=== PATIENT | female | born 1945 | race Caucasian/White ===

== ENCOUNTER → 2023-05-25 07:54 | Outpatient (REF) | payer MEDICARE, SELFPAY ==
[2023-05-25 10:29] LABS: Albumin 4.2 g/dl (3.5-5.0); Blood Urea Nitrogen 24 mg/dl (7-17); Calcium 9.5 mg/dl (8.4-10.2); Carbon Dioxide 24 mmol/L (22-30); Chloride 105 mmol/L (98-107); Glucose 111 mg/dl (70-99); HDL Cholesterol 105 mg/dl; LDL Cholesterol, Calculated 62 mg/dl; Phosphorus 4.3 mg/dl (2.5-4.5); Potassium 4.2 mmol/L (3.5-5.1); Sodium 136 mmol/L (135-145); Total Cholesterol 189 mg/dl (50-199); Triglyceride 112 mg/dl (10-149); Very Low Density Lipoprotein 22 mg/dl (0-30); eGFR > 60.00
== END ==
LOC: REG 07:54
PROVIDERS: ATTENDING PHYSICIAN Internal Medicine Cardiovascular Disease; FAMILY PHYSICIAN Family Medicine
DX: E78.5 Hyperlipidemia, unspecified (principal); I48.0 Paroxysmal atrial fibrillation; Z51.81 Encounter for therapeutic drug level monitoring; I10 Essential (primary) hypertension
CPT/HCPCS: 36415; 80061; 80069

== ENCOUNTER → 2023-11-20 13:45 | Outpatient (REF) | payer MEDICARE, SELFPAY ==
[2023-11-20 14:53] LABS: Albumin 4.4 g/dl (3.5-5.0); Blood Urea Nitrogen 29 mg/dl (7-17); Calcium 9.9 mg/dl (8.4-10.2); Carbon Dioxide 29 mmol/L (22-30); Chloride 103 mmol/L (98-107); Glucose 120 mg/dl (70-99); Phosphorus 3.4 mg/dl (2.5-4.5); Potassium 5.4 mmol/L (3.5-5.1); Sodium 143 mmol/L (135-145); eGFR 51.75
== END ==
LOC: REG 13:45
PROVIDERS: ATTENDING PHYSICIAN Internal Medicine Cardiovascular Disease
DX: I10 Essential (primary) hypertension (principal)
CPT/HCPCS: 36415; 80069

== ENCOUNTER → 2023-12-07 08:23 | Outpatient (REF) | payer MEDICARE, SELFPAY ==
[2023-12-07 11:50] LABS: Albumin 3.9 g/dl (3.5-5.0); Blood Urea Nitrogen 27 mg/dl (7-17); Calcium 9.3 mg/dl (8.4-10.2); Carbon Dioxide 24 mmol/L (22-30); Chloride 105 mmol/L (98-107); Glucose 106 mg/dl (70-99); Sodium 141 mmol/L (135-145); eGFR > 60.00
== END ==
LOC: REG 08:23
PROVIDERS: ATTENDING PHYSICIAN Internal Medicine Cardiovascular Disease; FAMILY PHYSICIAN Family Medicine
DX: I48.0 Paroxysmal atrial fibrillation (principal); I10 Essential (primary) hypertension
CPT/HCPCS: 36415; 80069

== ENCOUNTER 2024-01-13 13:26 | Emergency (ER) | payer MEDICARE, SELFPAY ==
[2024-01-13] VITALS (8 sets, daily range): BP systolic 133–173; BP diastolic 61–80; PULSE 49–52; BMI 33.8
[2024-01-13 14:58] LABS: % Basophils 0.9 % (0-2); % Eosinophils 2.2 % (0-6); % Immature Granulocytes 0.1 % (0-0.5); % Lymphocytes 26.6 % (20.5-51.1); % Monocytes 14.7 % (1.7-9.3); % Neutrophils 55.5 % (42.2-75.2); Absolute Basophils 0.1 10^3/uL (0-0.2); Absolute Eosinophils 0.2 10^3/uL (0-0.7); Absolute Lymphocytes 1.8 10^3/uL (1.2-3.4); Absolute Neutrophils 3.8 10^3/uL (1.4-6.5); Hematocrit 37.5 % (37.0-47.0); Hemoglobin 12.8 g/dL (12.0-16.0); Mean Corp Hgb Conc. 34.1 g/dL (33.0-37.0); Mean Corpuscular Hgb 32.2 pg (27.0-31.0); Mean Corpuscular Volume 94.2 fL (81.0-99.0); Mean Platelet Volume 9.9 fL (7.4-10.4); Nucleated Red Blood Cells % 0 %; Platelet Count 305 10^3/uL (130-400); Red Blood Cell Count 3.98 10^6/uL (4.20-5.40); Red Cell Dist. Width 13.8 % (11.5-14.5); White Blood Cell Count 6.9 10^3/uL (4.8-10.8)
[2024-01-13 15:23] LABS: ALT (SGPT) 20 U/L (0-35); AST (SGOT) 29 U/L (14-36); Albumin 4.1 g/dl (3.5-5.0); Alkaline Phosphatase 55 U/L (38-126); Blood Urea Nitrogen 28 mg/dl (7-17); Calcium 9.2 mg/dl (8.4-10.2); Carbon Dioxide 24 mmol/L (22-30); Chloride 106 mmol/L (98-107); Estimated Creatinine Clearance 43 ml/min; Glucose 91 mg/dl (70-99); Potassium 4.8 mmol/L (3.5-5.1); Sodium 140 mmol/L (135-145); Total Bilirubin 0.5 mg/dl (0.2-1.3); Total Protein 6.5 g/dl (6.3-8.2); eGFR 57.66
[2024-01-13 15:28] LABS: Troponin I < 0.012 ng/ml
[2024-01-13] MEDS: TYLENOL 1000 MG PO (15:30)
[2024-01-13 15:39] LABS: Lipase 307 U/L (23-300)
[2024-01-13 15:50] LABS: NT-proBNP 100 pg/ml
[2024-01-13 15:51] LABS: COVID-19 Antigen Negative (Negative)
--- NOTE | 2024-01-13 17:01 | ED.GENMED ---
History of Present Illness
General
Chief Complaint: Breathing Problem
Source: patient
Exam Limitations: none
Time Seen by Provider: 01/13/24 14:53
Nursing documentation reviewed up to this point in time: agreed with
History of Present Illness
History of Present Illness:
78 y/o F
h/o PAF on eliquis
metoprolol, low resting HR 50s
htn, hld
here with L shoulder pain when she woke up, worse with movement, painful ROM, and thought she slept on it wrong
took some aleve
but then noticed other sypmtoms, mild lightheadedness, nausea, felt a little sob and wondered if this could be a heart attack; she googled the sypmtom sand decided to come in
she is goign to have ablattion at the end of the month for PAF that is not responding to cardioversions
she otherwise doesn't have cardiac disease
no pleuritic pain, recent travle
is compliant with eliquis
she has no exertional sypmmtoms
no leg swleling, fever, vomiting, syncope
she does feel al ittle lightheaded, says she recently started different bp meds and is shceudled to have labs in a week to [facility] kidney function (losartan hctz)
Past History
Past History
ED Past Medical History: Arrthythmia (afib), HTN, Hypercholesterolemia and Other
Social History
Tobacco: Non-smoker
Alcohol: None
Review of Systems
Review of Systems
Allergies reviewed?: Yes
All Other Systems: Not applicable
Phy Exam
Physical Exam
Physical Exam:
GENERAL: Alert , in no apparent distress
EYE: pupils equal and reactive
NECK: Supple
ENT: o/p clr, mmm.
CARDIAC: bradycardic, no murmur, no edema
LUNGS: Clear breath sounds bilaterally, no acute respiratory distress, no wheezes/rales/rhonchi, no tachypnea
ABDOMEN: Soft, without focal tenderness, no r/g, no cvat, normal bowel sounds
NEUROLOGICAL: Alert and oriented, no focal neuro deficits
SKIN: Warm and dry, skin intact.
MUSCULOSKELETAL: shoulder L side, mild tenderness to anterior humerus; no swleling/redness
painful rotation/extension shoulder, some mild crunching with exam
no clvaicle tendneress
no LUE tenderness or swelling
PSYCH: Normal and appropriate interaction.
Scores
Heart Failure Risk
Heart Failure Risk Score: Not Applicable
Course
Orders/Labs/Results
Orders:
Orders
01/13/24 13:27
EKG [Electrocardiogram (*1)] Urgent
Reason for Study: Chest Pain
EKG- Treatment ONCE
01/13/24 14:43
Complete Blood Count/With Diff Urgent
Comprehensive Metabolic Panel Urgent
Lipase Urgent
01/13/24 14:44
NT-proBNP Urgent
Comment: BNP ADDED ON BY FLOOR 3:30PM 01-13-24
Troponin I Urgent
01/13/24 15:24
Orthostatic VS- Treatment ONCE
CR Shoulder, Trauma - Left Urgent
Comment:
Reason For Exam: left shoulder pain
01/13/24 15:25
Acetaminophen [Tylenol] 1,000 mg PO NOW STA
CR Chest - 2 Views Urgent
Comment:
Reason For Exam: lightheadedness, sob
01/13/24 15:26
Add On- LAB Urgent
Tests Added?: bnp
Add On- LAB Urgent
Tests Added?: lipase
01/13/24 15:31
COVID-19 Antigen Urgent
Source: Nasal Swab
Abnormal Lab Results
01/13/24
14:43
RBC 3.98 L 10^6/uL
(4.20-5.40)
MCH 32.2 H pg
(27.0-31.0)
Absolute Monos (auto) 1.0 H 10^3/uL
(0.1-0.6)
Monocytes % 14.7 H %
(1.7-9.3)
BUN 28 H mg/dl
(7-17)
Lipase 307 H U/L
(23-300)
01/13/24 14:43
01/13/24 14:43
Vital Signs
Initial and Last Documented VS:
Initial Vital Signs
Temp Pulse Resp BP Pulse Ox
36.8 C 56 18 171/80 97
01/13/24 13:32 01/13/24 13:32 01/13/24 13:32 01/13/24 13:32 01/13/24 13:32
Last Documented Vital Signs
Temp Pulse Resp BP Pulse Ox
36.8 C 49 16 171/75 97
01/13/24 13:32 01/13/24 16:15 01/13/24 16:15 01/13/24 16:00 01/13/24 15:45
MDM/Problems Addressed
Differential Diagnosis Includes:
calcific tendinitis, arhtirits, dehydration, near syncope, less likely nstemi/acs
MDM/Problems Addressed:
78 y/o F with h/o htn, hld, afib on eliquis
here with L sholuder pain when she woke up worse with movement
then noticed some other vague sypmtoms, nausea, mild sob, lightheadedness and she was worried mayb eshe was having heart attack
no syncope,
no exeritonal sypmtoms
no chest pain
no pleuritic pain
compliatn with eliequis
hr always 50s
wlel appearing no distress
some painful ROM of the L shoulder
nv intact
bradycardia but sinus
lungs lcear
abd nontender
labs appreciated, mild bun elevated, lipase minimally elevated, not clinicallys ignificant 307
ekg no ischemia
trop neg
bnp normal
cxr clear
d/w ed attending
xray shoulder indep reviewed by me and apperars like AC joint arthritis and calcific tenidnitis
tyenol and f/u
orthostatics neg, inc oral hydratoim
*Critical Care Note
Total Time (30-74mins, 75-104mins- exclusive of procedures): Not Applicable
ED Attending Note
-
Portions of this chart may have been created with voice recognition software.� Occasional wrong word or��sound alike� substitutions may have occurred due to the inherent limitations of voice recognition software.
Discharge Plan
Departure
Patient Disposition: Home (Routine Discharge)
Date of Disposition: 01/13/24
Time of Disposition: 17:19
Patient with high blood pressure during this ER visit?: Yes
Condition: Fair
Covid-19: Not Applicable
Discharge Problem:
Arthritis of shoulder, Calcific tendinitis of shoulder, Lightheadedness
Instructions: Shoulder Tendinopathy (DC)
Prescriptions:
No Action
atorvastatin 20 MG tablet
20 mg PO HS
metoprolol tartrate 25 MG tablet
12.5 mg PO HS
multivitamin [One Daily Multivitamin] 1 EACH tablet
1 ea PO DAILY
flecainide 100 MG tablet
100 mg PO BID
mupirocin 2 % ointment
1 applic intranasal BID Qty: 1 0RF
Patient Comments:
last dose was this am, 04/11/22
hydrochlorothiazide 25 mg Tablet
25 mg PO DAILY
docusate sodium 100 mg Capsule
100 mg PO BID Qty: 1 0RF
Eliquis 2.5 mg Tablet
2.5 mg PO BID Qty: 1 0RF
Rx Instructions:
last dose April 12p
magnesium hydroxide 400 mg/5 mL Suspension
30 ml PO DAILYPRN PRN (Reason: constipation) Qty: 30 0RF
acetaminophen 325 mg Tablet
650 mg PO Q4HWA Qty: 2 0RF
sennosides [senna] 8.6 mg Tablet
17.2 mg PO BID Qty: 2 0RF
dexamethasone 4 mg tablet
4 mg PO BID Qty: 6 0RF
Rx Instructions:
take with food
post-op use only
cyclobenzaprine 5 mg tablet
5 mg PO HS Qty: 10 0RF
oxycodone 5 mg tablet
5 - 10 mg PO Q6HPRN PRN (Reason: 1 tab moderate-2 tabs severe pain) Qty: 30 0RF
Rx Instructions:
Dx TKA
ongoing therapy
Eliquis 5 MG tablet
5 mg PO BID
Referrals:
Ángel Miranda MD [Family Provider] -
Activity Restrictions/Additional Instructions:
YOUR XRAY SHOWS SOME MILD ARTHRITIS AND POSSIBLY TENDINITIS INF YOUR SHOULDER
YOU SHOULD ICE OFF AND ON
TAKE TYLENOL FOR PAIN
FOLLOW UP WITH ORTHOPEDICS
YOUR CARDIAC WORK UP WAS RESASSURING
CALL YOUR DEPUTY ADMINISTRATOR AND TELL THEM YOU WERE IN THE ER
DRINK A LITTLE MORE FLUIDS, YOU MAY BE MILDLY DEHYDRATED
RETURN FOR: SEVERE WORSENING SYPMTOMS, TROUBLE BREATHING, PASSING OUT, EXERTIONAL SYMPTOS OR ANY CONCERNS.
Interventions
Interventions:
*Risk Screen - Suicide Last Done: 01/13/24 13:32
*General Assessment Last Done: 01/13/24 14:38
*Neglect/Abuse Screening Last Done: 01/13/24 13:32
ED- Fall Risk Assessment Last Done: 01/13/24 14:39
*ED COVID-19 Vaccine History Last Done: 01/13/24 14:38
ED- Cardiac Assessment Last Done: 01/13/24 14:39
ED- Pulmonary Assessment Last Done: 01/13/24 14:39
Discharge Date and Time
Print Language: RWANDAN
== END 2024-01-13 17:30 | disposition home or self-care (01) ==
LOC: EMR 13:26
PROVIDERS: Physician Assistant; EMERGENCY PHYSICIAN Emergency Medicine; FAMILY PHYSICIAN Family Medicine
DX: M75.32 Calcific tendinitis of left shoulder (principal); M19.012 Primary osteoarthritis, left shoulder; R42 Dizziness and giddiness; I10 Essential (primary) hypertension; E78.00 Pure hypercholesterolemia, unspecified; I48.0 Paroxysmal atrial fibrillation; Z79.01 Long term (current) use of anticoagulants; Z11.52 Encounter for screening for COVID-19
CPT/HCPCS: 99285; 71046; 73030; 80053; 83690; 83880; 84484; 85025; 87811; 93005

== ENCOUNTER → 2024-01-25 07:40 | Outpatient (REF) | payer MEDICARE, SELFPAY ==
[2024-01-25 08:55] LABS: Albumin 4.1 g/dl (3.5-5.0); Blood Urea Nitrogen 30 mg/dl (7-17); Calcium 9.3 mg/dl (8.4-10.2); Carbon Dioxide 28 mmol/L (22-30); Chloride 103 mmol/L (98-107); Glucose 105 mg/dl (70-99); Phosphorus 3.9 mg/dl (2.5-4.5); Potassium 4.3 mmol/L (3.5-5.1); Sodium 138 mmol/L (135-145); eGFR > 60.00
== END ==
LOC: REG 07:40
PROVIDERS: ATTENDING PHYSICIAN Internal Medicine Cardiovascular Disease
DX: I10 Essential (primary) hypertension (principal)
CPT/HCPCS: 36415; 80069

== ENCOUNTER → 2024-04-23 08:20 | Outpatient (REF) | payer MEDICARE, SELFPAY ==
[2024-04-23 10:42] LABS: Albumin 3.9 g/dl (3.5-5.0); Blood Urea Nitrogen 25 mg/dl (7-17); Calcium 9.8 mg/dl (8.4-10.2); Carbon Dioxide 26 mmol/L (22-30); Chloride 105 mmol/L (98-107); Glucose 97 mg/dl (70-99); Phosphorus 4.5 mg/dl (2.5-4.5); Potassium 4.7 mmol/L (3.5-5.1); Sodium 138 mmol/L (135-145); eGFR > 60.00
== END ==
LOC: REG 08:20
PROVIDERS: ATTENDING PHYSICIAN Internal Medicine Cardiovascular Disease; FAMILY PHYSICIAN Family Medicine
DX: I48.0 Paroxysmal atrial fibrillation (principal); I10 Essential (primary) hypertension
CPT/HCPCS: 36415; 80069

== ENCOUNTER → 2024-05-20 10:20 | Outpatient (REF) | payer MEDICARE, SELFPAY ==
[2024-05-20 11:24] LABS: % Basophils 1.2 % (0-2); % Immature Granulocytes 0.2 % (0-0.5); % Lymphocytes 26.2 % (20.5-51.1); % Monocytes 14.2 % (1.7-9.3); % Neutrophils 55.2 % (42.2-75.2); Absolute Basophils 0.1 10^3/uL (0-0.2); Absolute Eosinophils 0.2 10^3/uL (0-0.7); Absolute Lymphocytes 1.6 10^3/uL (1.2-3.4); Absolute Monocytes 0.9 10^3/uL (0.1-0.6); Absolute Neutrophils 3.4 10^3/uL (1.4-6.5); Hematocrit 39.3 % (37.0-47.0); Mean Corp Hgb Conc. 33.1 g/dL (33.0-37.0); Mean Corpuscular Hgb 31.6 pg (27.0-31.0); Mean Corpuscular Volume 95.4 fL (81.0-99.0); Mean Platelet Volume 11.1 fL (7.4-10.4); Nucleated Red Blood Cells % 0 %; Platelet Count 291 10^3/uL (130-400); Red Blood Cell Count 4.12 10^6/uL (4.20-5.40); Red Cell Dist. Width 13.9 % (11.5-14.5); White Blood Cell Count 6.1 10^3/uL (4.8-10.8)
[2024-05-20 11:48] LABS: Albumin 4.4 g/dl (3.5-5.0); Blood Urea Nitrogen 31 mg/dl (7-17); Calcium 9.7 mg/dl (8.4-10.2); Carbon Dioxide 26 mmol/L (22-30); Chloride 105 mmol/L (98-107); Glucose 112 mg/dl (70-99); Phosphorus 3.7 mg/dl (2.5-4.5); Potassium 4.7 mmol/L (3.5-5.1); Sodium 140 mmol/L (135-145); eGFR 57.66
== END ==
LOC: REG 10:20
PROVIDERS: ATTENDING PHYSICIAN Internal Medicine Cardiovascular Disease; FAMILY PHYSICIAN Family Medicine
DX: R09.89 Other specified symptoms and signs involving the circulatory and respiratory systems (principal); I48.0 Paroxysmal atrial fibrillation
CPT/HCPCS: 36415; 80069; 85025

== ENCOUNTER 2024-06-04 07:36 | Day surgery (SDC) | payer MEDICARE, SELFPAY ==
[2024-06-04] VITALS (9 sets, daily range): BP systolic 115–160; BP diastolic 53–70; BMI 34.4
[2024-06-04] MEDS: NSS 500 IV (08:42)
[2024-06-04 11:31] LABS: ACT-LR - POC 318 Seconds (116-155)
[2024-06-04 11:51] LABS: ACT-LR - POC 345 Seconds (116-155)
--- NOTE | 2024-06-04 12:36 | ITS.CL.ABL ---
Car Lot Attendant - Ablation
Ablation
Procedure Report:
AFIB / A flutter ablation:
Ms. Serrano is a very pleasant 78 yr old woman with medical history significant for symptomatic paroxysmal atrial fibrillation is here in the EP lab for atrial fibrillation ablation
Date of Procedure:
06/04/2024
Indications:
Symptomatic paroxysmal atrial fibrillation
Pre-Operative Diagnosis:
Paroxysmal atrial fibrillation
Post-Operative Diagnosis:
Paroxysmal atrial fibrillation
Procedure Performed:
Atrial fibrillation ablation with wide area circumferential ablation (WACA) approach for pulmonary vein isolation
Performing Physician:
Leoncio Jaime MD
Assistants:
EP staff
Anesthesia:
See anesthesia records
Detailed Description of the Procedure:
Written informed consent was obtained from the patient after a full explanation of the risks and benefits of the procedure including the risks of sedation and anesthesia.
The patient was brought to the electrophysiology laboratory in stable condition in fasting state. Continuous electrocardiographic and hemodynamic monitoring was initiated.
The initial rhythm was sinus bradycardia.
The procedure site was meticulously prepared with surgical scrub and allowed to dry with no pooling. Sterile draping was applied to cover the procedure site. The image intensifier was draped with sterile bag and positioned over the patient. After
infusion of local anesthetic, vascular access was obtained under ultrasound guidance and sheaths were placed over guide wire as detailed below.
The images of the ultrasound of the femoral vessels were stored in patient chart.
Sheath and Catheter Placement:
In the right femoral vein, a 10-Bahamian sheath was placed under ultrasound guidance for use during the ablation procedure. In the right femoral vein, another 9-Fr sheath was placed for use during intracardiac echo procedure.
The sheaths were upgraded as needed during the case. Intracardiac catheters were positioned using direct fluoroscopic guidance.� ICE catheter was placed in RA. The following catheters / sheaths were placed
Sheaths:
��������� Agilis sheath in right femoral vein upgraded from 10Fr in right femoral vein
��������� 9Fr in right femoral vein
Catheters:
��������� The Affera Sphere 9 catheter -bidirectional D/F� - at locations of HRA, LA and LV.
��������� ICE catheter -AccuNav -� at locations of RA, SVC, and RV.
Heparin was initiated after the access was obtained.
Intracardiac ECHO:
An 8-Bahamian AcuNav intracardiac ECHO (ICE) probe was advanced through the 9-Bahamian sheath in the left femoral vein into the right atrium under fluoroscopic and ICE ultrasound image guidance and a baseline ECHO study was performed. The left atrial
size was mildly dilated. There was trace tricuspid regurgitation. The aortic valve was grossly normal. There was normal left ventricular size and function. There is a trace pericardial effusion. The PRINCESS has baseline low velocities. The pulmonary had
good flow identified.
During the procedure, ICE was used for monitoring of complications, guidance of trans-septal puncture, monitor the catheter position and tracking ablation lesions. No change in the pericardial space noted throughout the procedure.
Trans-septal Puncture:
Heparin was initiated and infused to maintain appropriate ACT. A J-tipped guidewire was advanced through into the superior vena cava under fluoroscopic and ICE guidance. The Agilis sheath with BRK needle was advanced into the superior vena cava over
the guidewire. The apparatus was withdrawn until it was in contact with the fossa ovalis. The position was adjusted based on fluoroscopy and ultrasound images from ICE. Under fluoroscopic, hemodynamic and ICE ultrasound guidance, left atrium was
cannulated by advancing the needle. Once atrial septum was cannulated, the needle was pulled back and the guide wire was advanced through the needle into the left atrium. The guide wire was advanced into the left superior pulmonary vein. Both the
sheath and the dilator was advanced into the left atrium. The dilator with the needle was withdrawn. Blood was aspirated from the Agilis sheath and arterial blood confirmed. The sheath was flushed. Saline injection noted into the left atrium on ICE.
The waveform of the LA pressure was recorded. The mapping catheter was advanced in the Agilis sheath into the left pulmonary vein.
3D Electroanatomic Mapping:
Using the Sphere 9 Affera catheter advanced through Agilis sheath into the left atrium, an electroanatomic map (EAM) of the left atrium was created using Contur� mapping system with Prism-1 software. The map was used for localization of catheter
position and tacking of ablation lesions. The EAM of the left atrium showed a total of 4 PVs with a two left and two right sided pulmonary veins with all electrically connected to the body the LA. It showed no significant scar on the posterior wall
of the LA. The LA was dilated in size.
Following the EAM, preparation were made for ablation.
Ablation:
Ablation # 2: Pulmonary vein Isolation:
Glycopyrrolate 0.2 mg was given prior to the placement of ablation.
Pulsed field ablation was performed using an open irrigation, bidirectional, contact sensing, dual energy ablation catheter (Dextrysa sphere -9) by completing the circumferential lesions around the left and right pulmonary veins achieving pulmonary
vein isolation.
Confirmation of the PVI and bidirectional block:
Following achievement of entrance block at the pulmonary veins, pacing from the Sphere 9 affera catheter in each of the four veins at 20 milliamps for 4 milliseconds showed entrance and exit block.
The LA was mapped with The Dextrysa� mapping system with Prism-1 software in sinus rhythm confirming the line of block at the ablation lesions lines.
�
EP study:
Sinus Node Function: The sinus node functions are within acceptable normal range.
Atrioventricular Maddie Function: �Normal AV conduction noted with normal AV maddie conduction time.
Procedure End
ICE study was done again that showed no epicardial accumulation. No complications noted.
Following the completion of the EP study, catheters were removed. Protamine 30 mg was given at the end of the procedure and ACT was checked repeatedly. The sheaths were removed and hemostasis achieved with VASCADE and manual compression after
acceptable ACT is achieved.
Left atrial Pressure:
Pre-Procedure: Mean LA pressure was 5mmHg
Post-Procedure: Mean LA pressure was 5mmHg
Estimated Blood loss:
<10 cc
Specimens Removed:
None.
Implants / Devices:
None
Urine output:
None
Packs / Drains/ Tubes:
None
Instrument / Sponge Count Correct:
Yes
Complications of the Procedure:
None
Condition of Patient at Time of Transfer:
Hemodynamically stable with no neurological or vascular compromise.
Summary:
��������� Successful atrial fibrillation ablation with circumferential bidirectional line of block at pulmonary vein antra (Pulmonary vein isolation)
Figures from the Procedure:
Figure 1: The electroanatomic mapping (EAM) of the left atrium with bipolar voltage (purple indicates normal electrical activity with red as no myocardial muscle electric activity indicating a line of block or scar.
--- NOTE | 2024-06-04 15:03 | W.PN.UPDATE ---
Update Note
Progress Note Update
78 yo WF s/p PVI (same day). She denies cp, mild sore throat, and left arm pain, meghan diet, voiding, EKG SB 1deg AVB, R fem site VASCADE c/d/i no HT, soft. She will resume Eliquis tonight. She will stop flecainide and decrease carvedilol to 3.125mg
twice daily. She will monitor bp and bring log to her f/u apt. Activity restrictions reviewed. She will f/u in 2 weeks with CRUTCH MAKER. She is for d/c home after 3pm.
== END 2024-06-04 15:15 | disposition home or self-care (01) ==
LOC: CATH 07:36
PROVIDERS: ATTENDING PHYSICIAN Internal Medicine Cardiovascular Disease; FAMILY PHYSICIAN Family Medicine; OTHER PHYSICIAN Internal Medicine Cardiovascular Disease
DX: I48.0 Paroxysmal atrial fibrillation (principal); Z88.5 Allergy status to narcotic agent; Z98.890 Other specified postprocedural states; Z79.01 Long term (current) use of anticoagulants; Z79.899 Other long term (current) drug therapy; I10 Essential (primary) hypertension; E78.00 Pure hypercholesterolemia, unspecified
CPT/HCPCS: C1769; C1766; C1892; C1759; C1733; 85347; 86850; 86900; 86901; 93005; 93656; C1760

== ENCOUNTER → 2024-06-11 12:30 | Outpatient (REF) | payer MEDICARE, SELFPAY | LOC: HWWDC 12:30 | PROVIDERS: ATTENDING PHYSICIAN Obstetrics & Gynecology Gynecology; FAMILY PHYSICIAN Family Medicine | DX: Z12.31 Encounter for screening mammogram for malignant neoplasm of breast (principal) | CPT/HCPCS: 77063; 77067 ==

== ENCOUNTER 2024-06-13 15:02 | Emergency (ER) | payer MEDICARE, SELFPAY ==
[2024-06-13] VITALS (9 sets, daily range): BP systolic 106–128; BP diastolic 58–79; PULSE 63–70; BMI 33.4
[2024-06-13 15:27] LABS: % Basophils 0.9 % (0-2); % Eosinophils 2.2 % (0-6); % Immature Granulocytes 0.2 % (0-0.5); % Lymphocytes 24.2 % (20.5-51.1); % Monocytes 13.2 % (1.7-9.3); % Neutrophils 59.3 % (42.2-75.2); Absolute Basophils 0.1 10^3/uL (0-0.2); Absolute Eosinophils 0.2 10^3/uL (0-0.7); Absolute Monocytes 1.1 10^3/uL (0.1-0.6); Absolute Neutrophils 4.9 10^3/uL (1.4-6.5); Hematocrit 36.8 % (37.0-47.0); Hemoglobin 12.8 g/dL (12.0-16.0); Mean Corp Hgb Conc. 34.8 g/dL (33.0-37.0); Mean Corpuscular Hgb 31.8 pg (27.0-31.0); Mean Corpuscular Volume 91.5 fL (81.0-99.0); Mean Platelet Volume 10.2 fL (7.4-10.4); Nucleated Red Blood Cells % 0 %; Platelet Count 295 10^3/uL (130-400); Red Blood Cell Count 4.02 10^6/uL (4.20-5.40); Red Cell Dist. Width 14.1 % (11.5-14.5); White Blood Cell Count 8.2 10^3/uL (4.8-10.8)
[2024-06-13 15:41] LABS: ALT (SGPT) 22 U/L (0-35); AST (SGOT) 27 U/L (14-36); Albumin 4.1 g/dl (3.5-5.0); Alkaline Phosphatase 67 U/L (38-126); Blood Urea Nitrogen 28 mg/dl (7-17); Calcium 9.3 mg/dl (8.4-10.2); Carbon Dioxide 24 mmol/L (22-30); Chloride 107 mmol/L (98-107); Glucose 101 mg/dl (70-99); Potassium 4.3 mmol/L (3.5-5.1); Sodium 140 mmol/L (135-145); Total Bilirubin 0.8 mg/dl (0.2-1.3); Total Protein 6.5 g/dl (6.3-8.2); eGFR 57.66
[2024-06-13 16:00] LABS: Troponin I 0.058 ng/ml
--- NOTE | 2024-06-13 16:58 | EDRN ---
echo is currently at the pts bedside
--- NOTE | 2024-06-13 17:23 | ED.GENMED ---
History of Present Illness
General
Chief Complaint: Chest Pain
Source: patient and records
Time Seen by Provider: 06/13/24 16:21
History of Present Illness
History of Present Illness:
78-year-old female with past medical history of atrial fibrillation status post ablation on June 04, hypertension, hyperlipidemia presenting to the emergency department for evaluation of palpitations and lightheadedness that has been ongoing since
her ablation, noting symptoms worse over the last 48 hours. Patient asymptomatic presently other than some mild lightheadedness. She denies any fevers, chills, rigors. She reports taking her usual medications as scheduled. Currently denying any
chest pain, shortness of breath, diaphoresis, exertional dyspnea, orthopnea, lower extremity edema, cough, hemoptysis or any other concerns.
Past History
Past History
ED Past Medical History: Arrthythmia (afib), HTN, Hypercholesterolemia and Other
ED Past Surgical History: Cardiac, Gynecological and Orthopedic
Social History
Tobacco: Non-smoker
Alcohol: None
Drug: None
Personal:
Living: with family
Review of Systems
Review of Systems
All Other Systems: ROS reviewed and negative except as documented in HPI and ROS
Phy Exam
Physical Exam
Physical Exam:
GENERAL: Alert , in no apparent distress
EYE: conjunctiva clear
NECK: Supple
ENT: o/p clr, mmm.
CARDIAC: Regular rate and rhythm
LUNGS: Clear breath sounds bilaterally, no acute respiratory distress, no wheezes/rales/rhonchi
NEUROLOGICAL: Alert and oriented
SKIN: Warm and dry, skin intact.
MUSCULOSKELETAL: well perfused.
PSYCH: Normal and appropriate interaction.
Scores
Heart Failure Risk
Heart Failure Risk Score: Not Applicable
Heart Score for Chest Pain Patients
STEMI patient?: Not applicable
Withdrawal Assessment of Alcohol
Withdrawal Assessment Completed?: Not applicable
Course
Orders/Labs/Results
Orders:
Orders
06/13/24 15:04
EKG [Electrocardiogram (*1)] Urgent
Reason for Study: Chest Pain
EKG- Treatment ONCE
06/13/24 15:18
Complete Blood Count/With Diff Urgent
Comprehensive Metabolic Panel Urgent
Troponin I Urgent
06/13/24 16:31
Orthostatic VS- Treatment ONCE
06/13/24 16:33
Echo 2D MMode Color/Doppler Urgent
Reason for Study: palpitations, recent ablation, elevated trop
CR Chest - 2 Views Urgent
Comment:
Reason For Exam: palpitations, recent ablation, elevated trop
06/13/24 17:56
Troponin I Urgent
Abnormal Lab Results
06/13/24 06/13/24
15:18 17:56
RBC 4.02 L 10^6/uL
(4.20-5.40)
Hct 36.8 L %
(37.0-47.0)
MCH 31.8 H pg
(27.0-31.0)
Absolute Monos (auto) 1.1 H 10^3/uL
(0.1-0.6)
Monocytes % 13.2 H %
(1.7-9.3)
BUN 28 H mg/dl
(7-17)
Glucose 101 H mg/dl
(70-99)
Troponin I 0.058 H* ng/ml 0.057 H* ng/ml
06/13/24 15:18
06/13/24 15:18
Vital Signs
Initial and Last Documented VS:
Initial Vital Signs
Temp Pulse Resp BP Pulse Ox
98.3 F 72 18 113/63 96
06/13/24 15:10 06/13/24 15:10 06/13/24 15:10 06/13/24 15:10 06/13/24 15:10
Last Documented Vital Signs
Temp Pulse Resp BP Pulse Ox
97.6 F 94 19 119/79 96
06/13/24 15:49 06/13/24 18:45 06/13/24 18:45 06/13/24 17:39 06/13/24 18:45
MDM/Problems Addressed
Differential Diagnosis Includes:
Paroxysmal atrial fibrillation, orthostasis, symptomatic hypotension, electrolyte derangement, atypical ACS presentation
MDM/Problems Addressed:
78-year-old female presenting to the ER for evaluation of paroxysmal palpitations and lightheadedness, currently without palpitations but still feeling lightheaded. Blood pressure is a little bit soft, question polypharmacy or medication side
effect. Also question orthostasis. Patient's EKG is a normal sinus rhythm, no ischemic changes, telemetry remains in normal sinus rhythm. Given recent procedure we will touch base with cardiology. Will check orthostatic vital signs. Patient had
lab work initiated in triage which did reveal a mildly elevated troponin at 0.058. Will repeat this although it could be related to recent ablation.
Chronic conditions affecting care: Arrhythmia
Acute Exacerbation and/or Progression of Chronic Illness: Arrhythmia
*Radiology
Radiology exam reviewed: radiology read reviewed
*Pulse Oximetry
Patient hypoxic: no
*EKG
Heart Rate: 66
Rate: normal
Rhythm: sinus
Ischemia: non-specific ST changes
*Litigation Docket Manager Interpretation
Rate: normal
Rhythm: sinus
*Critical Care Note
Total Time (30-74mins, 75-104mins- exclusive of procedures): Not Applicable
Data Reviewed
Review of Other/Old Records Reveals: Records and Testing
Source: patient and records
Patient Management
Discussion with other providers: Automotive Quality Engineer
Escalation/DeEscalation of care consider admission/obs:
Case discussed with cardiology who recommends getting chest x-ray and echocardiogram to rule out effusion. Agrees with remaining workup
Patient's chest x-ray and echocardiogram are unremarkable. Repeat troponin downtrending. Patient remains asymptomatic. Stable for discharge home and outpatient management with cardiology.
ED Attending Note
-
Portions of this chart may have been created with voice recognition software.� Occasional wrong word or��sound alike� substitutions may have occurred due to the inherent limitations of voice recognition software.
Discharge Plan
Departure
Patient Disposition: Home (Routine Discharge)
Date of Disposition: 06/13/24
Time of Disposition: 18:35
Patient with high blood pressure during this ER visit?: No
Discharge Problem:
Palpitations, Lightheadedness
Instructions: Palpitations - ED discharge instructions
Prescriptions:
No Action
atorvastatin 20 MG tablet
20 mg PO HS
multivitamin [One Daily Multivitamin] 1 EACH tablet
1 ea PO DAILY
Eliquis 5 mg tablet
5 mg PO BID
acetaminophen 500 mg Tablet
500 mg PO Q6HPRN PRN (Reason: mild pain)
hydrochlorothiazide 25 mg Tablet
25 mg PO DAILY
valsartan 160 mg Tablet
160 mg PO BID
carvedilol 6.25 mg Tablet
3.125 mg PO BID Qty: 0 0RF
Referrals:
Sandra Aviles MD [Family Provider] -
Interventions
Interventions:
*Risk Screen - Suicide Last Done: 06/13/24 15:10
*General Assessment Last Done: 06/13/24 15:10
*Neglect/Abuse Screening Last Done: 06/13/24 15:10
*ED- Fall Risk Assessment Last Done: 06/13/24 15:49
*ED COVID-19 Vaccine History Last Done: 06/13/24 15:10
*Nursing Disposition Last Done: 06/13/24 18:48
ED- Cardiac Assessment Last Done: 06/13/24 15:49
Discharge Date and Time
Discharge Date/Time: 06/13/24 18:49
Print Language: ITALIAN
[2024-06-13 18:28] LABS: Troponin I 0.057 ng/ml
== END 2024-06-13 18:49 | disposition home or self-care (01) ==
LOC: EMR 15:02
PROVIDERS: Physician Assistant Medical; EMERGENCY PHYSICIAN Emergency Medicine; FAMILY PHYSICIAN Family Medicine
DX: R07.89 Other chest pain (principal); I48.91 Unspecified atrial fibrillation; I10 Essential (primary) hypertension; E78.00 Pure hypercholesterolemia, unspecified; I70.0 Atherosclerosis of aorta
CPT/HCPCS: 99283; 71046; 80053; 84484; 85025; 93005; 93306

== ENCOUNTER 2024-06-25 13:24 | Emergency (ER) | payer MEDICARE, SELFPAY ==
[2024-06-25] VITALS (19 sets, daily range): BP systolic 100–141; BP diastolic 54–94; BMI 34.4
[2024-06-25 13:41] LABS: % Basophils 0.8 % (0-2); % Eosinophils 1.4 % (0-6); % Immature Granulocytes 0.3 % (0-0.5); % Lymphocytes 23.8 % (20.5-51.1); % Monocytes 10.4 % (1.7-9.3); % Neutrophils 63.3 % (42.2-75.2); Absolute Basophils 0.1 10^3/uL (0-0.2); Absolute Eosinophils 0.1 10^3/uL (0-0.7); Absolute Lymphocytes 1.8 10^3/uL (1.2-3.4); Absolute Monocytes 0.8 10^3/uL (0.1-0.6); Absolute Neutrophils 4.8 10^3/uL (1.4-6.5); Hematocrit 37.7 % (37.0-47.0); Hemoglobin 13.1 g/dL (12.0-16.0); Mean Corp Hgb Conc. 34.7 g/dL (33.0-37.0); Mean Corpuscular Hgb 31.6 pg (27.0-31.0); Mean Corpuscular Volume 91.1 fL (81.0-99.0); Nucleated Red Blood Cells % 0 %; Platelet Count 345 10^3/uL (130-400); Red Blood Cell Count 4.14 10^6/uL (4.20-5.40); White Blood Cell Count 7.6 10^3/uL (4.8-10.8)
[2024-06-25 13:55] LABS: ALT (SGPT) 20 U/L (0-35); AST (SGOT) 26 U/L (14-36); Albumin 4.4 g/dl (3.5-5.0); Alkaline Phosphatase 75 U/L (38-126); Blood Urea Nitrogen 24 mg/dl (7-17); Calcium 9.7 mg/dl (8.4-10.2); Carbon Dioxide 27 mmol/L (22-30); Chloride 109 mmol/L (98-107); Glucose 146 mg/dl (70-99); Sodium 142 mmol/L (135-145); Total Protein 6.7 g/dl (6.3-8.2); eGFR 57.66
[2024-06-25 14:05] LABS: Troponin I < 0.012 ng/ml
--- NOTE | 2024-06-25 14:30 | ED.GENMED ---
History of Present Illness
General
Chief Complaint: Heart Rate Problem
Time Seen by Provider: 06/25/24 14:06
History of Present Illness
History of Present Illness:
Patient is a 78-year-old woman with history of paroxysmal A-fib with recent ablation presenting to the emergency department palpitations. Per chart review patient had an ablation done on June 04. She is on Coreg and Eliquis. She has not missed
any doses. She was on flecainide which they discontinued. She states that she woke up at 3 AM with palpitations. She has had this once before and it resolved without any intervention. She does feel slightly lightheaded dizzy though states that
at her baseline. No chest pain no shortness of breath. Has not missed any doses. No fevers chills. No infectious signs or. She did call her produce buyer who advised her to come to the emergency department.
Past History
Past History
ED Past Medical History: Arrthythmia (afib), HTN, Hypercholesterolemia and Other
ED Past Surgical History: Cardiac, Gynecological and Orthopedic
Social History
Tobacco: Non-smoker
Alcohol: None
Drug: None
Personal:
Living: with family
Phy Exam
Physical Exam
Physical Exam:
GENERAL: in no acute distress
HEENT: normocephalic, extraocular movements intact, moist oral mucosa
NECK: normal inspection
RESPIRATORY: no respiratory distress, clear to auscultation bilaterally
CARDIOVASCULAR: Irregularly irregular, tachycardic rate
ABDOMEN/: soft, non-distended, non-tender to palpation, no rebound or guarding
EXTREMITIES: non-tender, no edema/swelling
NEUROLOGIC: awake and alert, moves all extremities
SKIN: warm
Course
Orders/Labs/Results
Orders:
Orders
06/25/24 13:25
ECG [Electrocardiogram (*1)] Urgent
Reason for Study: Abnormal EKG
EKG- Treatment ONCE
Etomidate [Amidate] 40 mg .ROUTE .STK-MED ONE
06/25/24 13:33
Complete Blood Count/With Diff Urgent
Comprehensive Metabolic Panel Urgent
Troponin I Urgent
06/25/24 14:42
Propofol [Diprivan] 20 ml .ROUTE .STK-MED
06/25/24 15:11
EKG [Electrocardiogram (*1)] Urgent
Reason for Study: Atrial Fibrillation
06/25/24 15:21
EKG- Treatment ONCE
Abnormal Lab Results
06/25/24
13:33
RBC 4.14 L 10^6/uL
(4.20-5.40)
MCH 31.6 H pg
(27.0-31.0)
Absolute Monos (auto) 0.8 H 10^3/uL
(0.1-0.6)
Monocytes % 10.4 H %
(1.7-9.3)
Chloride 109 H mmol/L
(98-107)
BUN 24 H mg/dl
(7-17)
Glucose 146 H mg/dl
(70-99)
06/25/24 13:33
06/25/24 13:33
Vital Signs
Initial and Last Documented VS:
Initial Vital Signs
Temp Pulse Resp BP Pulse Ox
98.1 F 142 16 141/94 96
06/25/24 13:29 06/25/24 13:29 06/25/24 13:29 06/25/24 13:29 06/25/24 13:29
Last Documented Vital Signs
Temp Pulse Resp BP Pulse Ox
97.5 F 74 18 130/84 98
06/25/24 15:24 06/25/24 16:49 06/25/24 16:49 06/25/24 16:49 06/25/24 15:24
Procedures
Cardioversion
Indication:: Afib
Performed by:: dr marinelli
Synchronized?: Yes
Energy Used: 200 joules
Number of attempts: 1
Successful?: Yes
ASA Risk Score: Class II
Any reaction or bad outcome to prior sedation/anesthesia?: No history of a reaction
Sedation level to be attained: moderate
Chart and allergies reviewed: Yes
Patient reassessed prior to sedation: Yes
Time out completed at (validating right patient & procedure): 15:07
History of difficult intubation: No
Airway free of obstruction: Yes
Patient has a gag reflex: Yes
Patient is able to open mouth: Yes
Patient has no dentures: Yes
Patient has no loose teeth: Yes
Medication administered by Provider during Moderate Sedation: Other (etomidate)
Total dose administered: 8
Start Time: 15:08
Stop Time: 15:23
MDM/Problems Addressed
Differential Diagnosis Includes:
Patient is a 78-year-old woman with history of paroxysmal A-fib on Eliquis and Coreg and recent ablation presenting to the emergency department with palpitations since 3 AM. On arrival patient's vital signs are in the 120s. During my evaluation in
the room her heart rate did show A-fib on the monitor between the 120s and 140s. Exam is otherwise reassuring. EKG per my interpretation atrial flutter with a 2-1 block. Blood work obtained prior to my evaluation is unremarkable. After shared
decision making patient would prefer to proceed with cardioversion. I did discuss with cardiology given recent procedure and they are also in agreement. If cardioversion fails then they would prefer diltiazem for medical management.
*Critical Care Note
Total Time (30-74mins, 75-104mins- exclusive of procedures): 35
comment:
Critical care statement: A total of 35 minutes of critical care time was provided for this patient. This includes management of unstable vital signs, evaluation of the patient at bedside, reviewing the patient's pertinent medical records, ordering
and reviewing studies, arranging urgent treatment with development of a management plan, evaluating patient's response to treatment, frequent reassessment, and discussion with consultants. This time was separate from time utilized to perform the
aforementioned documented procedures.
Update Note
Update Note:
Successful cardioversion. Please see note above. Repeat EKG per my interpretation normal sinus rhythm. Patient ambulatory and tolerating p.o. Will discharge the patient at this time with cardiology follow-up.
ED Attending Note
-
Portions of this chart may have been created with voice recognition software.� Occasional wrong word or��sound alike� substitutions may have occurred due to the inherent limitations of voice recognition software.
Discharge Plan
Departure
Patient Disposition: Home (Routine Discharge)
Date of Disposition: 06/25/24
Time of Disposition: 17:15
Patient with high blood pressure during this ER visit?: No
Discharge Problem:
Atrial flutter, Encounter for cardioversion procedure
Instructions: Cardioversion - Discharge instructions, Sedation for procedures in adults - ED discharge instructions
Prescriptions:
No Action
atorvastatin 20 MG tablet
20 mg PO HS
multivitamin [One Daily Multivitamin] 1 EACH tablet
1 ea PO DAILY
Eliquis 5 mg tablet
5 mg PO BID
acetaminophen 500 mg Tablet
500 mg PO Q6HPRN PRN (Reason: mild pain)
hydrochlorothiazide 25 mg Tablet
25 mg PO DAILY
valsartan 160 mg Tablet
160 mg PO BID
carvedilol 6.25 mg Tablet
3.125 mg PO BID Qty: 0 0RF
Referrals:
Sandra Aviles MD [Family Provider] -
Bonnie Chung MD [Active] -
Interventions
Interventions:
*Risk Screen - Suicide Last Done: 06/25/24 13:30
*General Assessment Last Done: 06/25/24 14:11
*Neglect/Abuse Screening Last Done: 06/25/24 13:30
*ED- Fall Risk Assessment Last Done: 06/25/24 14:11
*ED COVID-19 Vaccine History Last Done: 06/25/24 14:11
ED- Cardiac Assessment Last Done: 06/25/24 14:12
ED- Pulmonary Assessment Last Done: 06/25/24 14:12
Discharge Date and Time
Print Language: LATVIAN
== END 2024-06-25 17:59 | disposition home or self-care (01) ==
LOC: EMR 13:24
PROVIDERS: Emergency Medicine; EMERGENCY PHYSICIAN Student in an Organized Health Care Education/Training Program; FAMILY PHYSICIAN Family Medicine
DX: I48.92 Unspecified atrial flutter (principal); I10 Essential (primary) hypertension; E78.00 Pure hypercholesterolemia, unspecified; I48.0 Paroxysmal atrial fibrillation; Z79.01 Long term (current) use of anticoagulants
CPT/HCPCS: 92960; 99152; 99291; 80053; 84484; 85025; 93005

== ENCOUNTER → 2024-10-30 08:45 | Outpatient (REF) | payer MEDICARE, SELFPAY ==
[2024-10-30 09:39] LABS: Hematocrit 39.7 % (37.0-47.0); Hemoglobin 13.2 g/dL (12.0-16.0); Mean Corp Hgb Conc. 33.2 g/dL (33.0-37.0); Mean Corpuscular Volume 92.1 fL (81.0-99.0); Nucleated Red Blood Cells % 0 %; Platelet Count 294 10^3/uL (130-400); Red Cell Dist. Width 14.4 % (11.5-14.5)
[2024-10-30 10:29] LABS: ALT (SGPT) 20 U/L (0-35); AST (SGOT) 24 U/L (14-36)
[2024-10-30 10:32] LABS: ALT (SGPT) 20 U/L (0-35); AST (SGOT) 23 U/L (14-36); Albumin 4.3 g/dl (3.5-5.0); Alkaline Phosphatase 70 U/L (38-126); Blood Urea Nitrogen 21 mg/dl (7-17); Calcium 10.0 mg/dl (8.4-10.2); Carbon Dioxide 32 mmol/L (22-30); Chloride 102 mmol/L (98-107); Glucose 101 mg/dl (70-99); Potassium 4.5 mmol/L (3.5-5.1); Sodium 139 mmol/L (135-145); Total Protein 7.0 g/dl (6.3-8.2); Very Low Density Lipoprotein 17 mg/dl (0-30); eGFR > 60.00
[2024-10-30 10:43] LABS: HDL Cholesterol 106 mg/dl; LDL Cholesterol, Calculated 73 mg/dl
[2024-10-30 11:58] LABS: Glycohemoglobin (HgbA1c) 5.6 % (4.0-5.6)
== END ==
LOC: REG 08:45
PROVIDERS: ATTENDING PHYSICIAN Internal Medicine Cardiovascular Disease; FAMILY PHYSICIAN Family Medicine
DX: R79.9 Abnormal finding of blood chemistry, unspecified (principal); Z01.89 Encounter for other specified special examinations; Z79.899 Other long term (current) drug therapy; E78.5 Hyperlipidemia, unspecified
CPT/HCPCS: 36415; 80053; 80061; 83036; 84443; 84450; 84460; 85025

== ENCOUNTER → 2024-11-21 07:48 | Outpatient (REF) | payer MEDICARE, SELFPAY ==
[2024-11-21 09:48] LABS: Albumin 4.0 g/dl (3.5-5.0); Blood Urea Nitrogen 22 mg/dl (7-17); Calcium 9.4 mg/dl (8.4-10.2); Carbon Dioxide 31 mmol/L (22-30); Chloride 104 mmol/L (98-107); Glucose 97 mg/dl (70-99); Potassium 4.8 mmol/L (3.5-5.1); Sodium 140 mmol/L (135-145); eGFR > 60.00
== END ==
LOC: REG 07:48
PROVIDERS: ATTENDING PHYSICIAN Internal Medicine Cardiovascular Disease; FAMILY PHYSICIAN Family Medicine
DX: R09.89 Other specified symptoms and signs involving the circulatory and respiratory systems (principal)
CPT/HCPCS: 36415; 80069

== ENCOUNTER → 2024-12-04 15:11 | Outpatient (REF) | payer MEDICARE, SELFPAY | LOC: RAD 15:11 | PROVIDERS: ATTENDING PHYSICIAN Family Medicine | DX: R22.32 Localized swelling, mass and lump, left upper limb (principal) | CPT/HCPCS: 76882 ==

== ENCOUNTER → 2025-01-03 13:02 | Outpatient (REF) | payer MEDICARE, SELFPAY | LOC: PAVMRI 13:02 | PROVIDERS: ATTENDING PHYSICIAN Physician Assistant Surgical; FAMILY PHYSICIAN Family Medicine | DX: M25.562 Pain in left knee (principal) | CPT/HCPCS: 73721 ==